=== PATIENT | male | born 1960 | race Caucasian/White ===

== ENCOUNTER 2018-02-05 16:46 | Emergency (ER) | payer OTHER ==
[~2018-02-05] VITALS: Ht 162.6 cm; Wt 68.0 kg
--- NOTE | 2018-02-05 16:46 | NUR ---
PT BIBA BLS TO BED 8
--- NOTE | 2018-02-05 17:00 | NUR ---
MCKINLEY PT IS A HOMELESS AMBULATED WITH W/C; LEFT ARM 7 left leg contracture. PT C/O USING METH AND "MISSING." PT HAS POSSIBLE CELLULITIS TO R ARM. ARM IS SWOLLEN , WARM TO THE TOUCH, BLISTERING NOTED. HX: METH USE. DENIES N/V/D. AAOX4.PATIENT STATES PAIN OF 7/10 AT THIS TIME. PATIENT POSITIONED FOR COMFORT; R ARM ELEVATED; BEDRAILS UP X2; BED DOWN. ER MD MADE AWARE OF PT STATUS.
[2018-02-05 17:01] VITALS: BP 128/69
[2018-02-05] MEDS ORDERED: VANCOMYCIN 1,000 MG in DEXTROSE 5% 250 ML IV ONE (17:35)
[2018-02-05] MEDS ORDERED: NACL 0.9% 1,000 ML IV ONE ×2 (17:35→18:10)
[2018-02-05] MEDS ORDERED: ONDANSETRON 4 MG/2 ML VIAL IVP ONE (17:35)
[2018-02-05] MEDS ORDERED: PIPERACILLIN/TAZOBACTAM 3.375 GM in DEXTROSE 5% 50 ML IV ONE (17:35)
[2018-02-05] MEDS ORDERED: MORPHINE SULFATE 4 MG/ML SYR IVP ONE (17:35)
[2018-02-05] MEDS ORDERED: VANCOMYCIN 1,000 MG VIAL ONE (18:22)
[2018-02-05] MEDS ORDERED: PIPERACILLIN/TAZOBACTAM 3.375 GM VIAL IV ONE (18:22)
--- NOTE | 2018-02-05 18:23 | NUR ---
US AND LAB AT BEDSIDE.
--- NOTE | 2018-02-05 18:23 | NUR ---
LAB AT BEDSIDE
[2018-02-05] MEDS ORDERED: MORPHINE SULFATE 2 MG/ML SYR ONE (18:24)
[2018-02-05 18:38] LABS: BASOPHILS # (AUTO) 0.1 K/uL (0.00-0.22); BASOPHILS % (AUTO) 0.4 % (0.0-2.0); EOSINOPHILS % (AUTO) 0.1 % (0.0-4.0); HEMATOCRIT 42.3 % (36-52); HEMOGLOBIN 14.3 g/dL (12.0-18.0); LYMPHOCYTES # (AUTO) 0.9 K/uL (2.0-11.5); LYMPHOCYTES % (AUTO) 3.7 % (20.5-51.1); MEAN CORPUSCULAR HEMOGLOBIN 30 pg (27-31); MEAN CORPUSCULAR HGB CONC 34 g/dL (33-37); MEAN CORPUSCULAR VOLUME 88.2 fL (80-94); MONOCYTES # (AUTO) 2.4 K/uL (0.8-1.0); NEUTROPHILS % (AUTO) 85.8 % (42.2-75.2); PLATELET COUNT (AUTO) 265 K/uL (140-450); RED CELL DISTRIBUTION WIDTH 13.6 % (11.6-13.7); WHITE BLOOD COUNT (AUTO) 24.5 K/uL (4.8-10.8)
[2018-02-05 18:48] LABS: ANION GAP 16.3 (8-16); CARBON DIOXIDE 23.1 mmol/L (21-32); CREATININE 1.1 mg/dL (0.7-1.3); POTASSIUM 3.4 mmol/L (3.5-5.1)
[2018-02-05 18:54] LABS: PROTHROMBIN TIME 10.8 secs (10.8-13.4)
--- NOTE | 2018-02-05 18:56 | NUR ---
GAVE REPORT TO LUCIANA; [facility].
[2018-02-05 19:03] LABS: ALBUMIN 2.2 g/dL (3.4-5.0); TOTAL BILIRUBIN 1.5 mg/dL (0.0-1.0)
--- NOTE | 2018-02-05 19:03 | NUR ---
CODE 3 TRANSPORT FOR PT ARRIVED
[2018-02-05 19:05] VITALS: BP 134/62
--- NOTE | 2018-02-05 19:05 | NUR ---
Patient to be transferred to [facility]. Is being transferred due to [facility]OG[facility] LEVEL. Receiving facility has accepting physician and available space. ER physician has signed transfer form. Patient or responsible republican has agreed to transfer and signed form. Patient belongings inventoried and will be sent with patient. Copy of nursing notes, lab reports, EKG, Physicians Orders and X-rays to be sent with patient. Report called to LUCIANA CHACON at receiving facility. [facility] ambulance service has been called for transfer.
[2018-02-05 19:59] LABS: APPEARANCE,URINE CLEAR (CLEAR); BILIRUBIN,URINE SMALL (NEGATIVE); BLOOD, URINE SMALL (NEGATIVE); COLOR,URINE YELLOW (YELLOW); LEUKOCYTE ESTERASE ,URINE NEGATIVE (NEGATIVE); NITRITE, URINE NEGATIVE (NEGATIVE); PH,URINE 6.5 (5.0-9.0); UGLUCOSE NEGATIVE (NEGATIVE)
[2018-02-05 20:05] LABS: RBC,URINE 3-10 (FEW) /HPF (0-5); WBC,URINE 0-5 (RARE) /HPF (0-5)
== END 2018-02-05 19:05 | disposition short-term general hospital (02) ==
LOC: MED 16:46
DX: R94.31 Abnormal electrocardiogram [ECG] [EKG] (principal); I21.3 ST elevation (STEMI) myocardial infarction of unspecified site; L03.113 Cellulitis of right upper limb; B95.62 Methicillin resistant Staphylococcus aureus infection as the cause of diseases classified elsewhere; A41.9 Sepsis, unspecified organism; F17.210 Nicotine dependence, cigarettes, uncomplicated
CPT/HCPCS: 36415; 80053; 81001; 82550; 83605; 84484; 85025; 85379; 85610; 85730; 87040; 87086; 93971; 96365; 96375; 99285; J2270; J2405; J2543; J3370; J7030; J7060; Q0092

== ENCOUNTER 2019-04-02 08:53 | Emergency (ER) | payer OTHER ==
[~2019-04-02] VITALS: Ht 167.6 cm; Wt 68.0 kg
--- NOTE | 2019-04-02 08:59 | NUR ---
PATIENT BIBA TO BED 12 AT THIS TIME.
[2019-04-02 09:02] VITALS: BP 152/95
--- NOTE | 2019-04-02 09:07 | NUR ---
MCKINLEY FROM [facility] C/O L LEG PAIN X A YEAR. MED HX: HEP C, HEAD & R ARM SURGERY. PATIENT STATES PAIN OF 10/10 AT THIS TIME. PATIENT POSITIONED FOR COMFORT; HOB ELEVATED; BEDRAILS UP X2; BED DOWN. ER MD MADE AWARE OF PT STATUS.
[2019-04-02] MEDS ORDERED: KETOROLAC 60 MG/2 ML VIAL IM ONE (09:55)
--- NOTE | 2019-04-02 10:08 | NUR ---
IM GERMAN MEDS GIVEN-NADR AT THIS TIME
--- NOTE | 2019-04-02 10:08 | NUR ---
XRAY AT BEDSIDE
--- NOTE | 2019-04-02 11:32 | NUR ---
PT GIVEN ANOTHER BLANKET AND POSITIONED FOR COMFORT.
[2019-04-02 11:59] VITALS: BP 134/88
--- NOTE | 2019-04-02 12:00 | NUR ---
Patient discharged with v/s stable. Written and verbal after care instructions given and explained. Patient alert, oriented and verbalized understanding of instructions. Wheel Chair Assisted with to home. All questions addressed prior to discharge. ID band removed. Patient advised to follow up with PMD. Rx of NAPROSYN given. Patient educated on indication of medication including possible reaction and side effects. Opportunity to ask questions provided and answered.
--- NOTE | 2019-04-02 12:01 | NUR ---
HOMELESS PT WAIVER FORM DONE LUNCH GIVEN
== END 2019-04-02 12:00 | disposition home or self-care (01) ==
LOC: MED 08:53
DX: G89.29 Other chronic pain (principal); M79.605 Pain in left leg; F17.210 Nicotine dependence, cigarettes, uncomplicated; F15.10 Other stimulant abuse, uncomplicated; Z86.19 Personal history of other infectious and parasitic diseases; Z98.890 Other specified postprocedural states
CPT/HCPCS: 73562; 73590; 73610; 96372; 99283; J1885; Q0092

== ENCOUNTER 2021-12-18 15:08 | Emergency (ER) | payer OTHER ==
[~2021-12-18] VITALS: Ht 167.6 cm; Wt 68.0 kg
[~2021-12-18 15:08] MED LIST: CEFD300C3 PO; DOXY-690 PO; ONDA-188 PO
[2021-12-18 15:15] VITALS: BP 134/95
--- NOTE | 2021-12-18 15:20 | NUR ---
TENT 2.
[2021-12-18] MEDS ORDERED: CEPH-588 PO (17:15)
[2021-12-18] MEDS ORDERED: SULF-59 PO (17:15)
[2021-12-18] MEDS ORDERED: IBUP-1842 PO (17:15)
[2021-12-18 17:50] VITALS: BP 134/95
--- NOTE | 2021-12-18 17:50 | NUR ---
Patient discharged with v/s stable. Written and verbal after care instructions given and explained. Patient alert, oriented and verbalized understanding of instructions. Ambulatory with steady gait. All questions addressed prior to discharge. ID band removed. Patient advised to follow up with PMD. Rx of KFELX, MOTRIN, AND BACTRIM given. Patient educated on indication of medication including possible reaction and side effects. Opportunity to ask questions provided and answered.
== END 2021-12-18 17:50 | disposition home or self-care (01) ==
LOC: MED 15:08
DX: L03.116 Cellulitis of left lower limb (principal); L03.115 Cellulitis of right lower limb; I10 Essential (primary) hypertension; Z79.899 Other long term (current) drug therapy
CPT/HCPCS: 99283

== ENCOUNTER 2021-12-19 04:45 | Emergency (ER) | payer OTHER ==
[~2021-12-19] VITALS: Ht 167.6 cm; Wt 59.0 kg
[2021-12-19 04:45] VITALS: BP 162/110
[~2021-12-19 04:45] MED LIST changes: +CEPH-588 PO; +IBUP-1842 PO; +SULF-59 PO
--- NOTE | 2021-12-19 04:45 | NUR ---
Dr. Britt examining patient.
[2021-12-19] MEDS ORDERED: IBUPROFEN 800 MG TAB PO ONE (04:50)
--- NOTE | 2021-12-19 04:55 | NUR ---
04:47 PER PT JUST WANTS CLEAN CLOTHES AND TO GET CLEANED UP.
[2021-12-19 05:15] VITALS: BP 162/110
--- NOTE | 2021-12-19 05:15 | NUR ---
Patient discharged with v/s stable. Written and verbal after care instructions given and explained. Patient verbalized understanding. Wheel Chair Assisted with by himself. All questions addressed prior to discharge. Advised to follow up with PMD.
== END 2021-12-19 05:15 | disposition home or self-care (01) ==
LOC: MED 04:45
DX: M79.604 Pain in right leg (principal); M79.605 Pain in left leg; I10 Essential (primary) hypertension; Z79.899 Other long term (current) drug therapy; Z59.00 Homelessness unspecified
CPT/HCPCS: 99282

== ENCOUNTER 2022-01-01 16:24 | Inpatient (IN) | payer OTHER ==
[~2022-01-01] VITALS: Ht 172.7 cm; Wt 68.0 kg
[2022-01-01 16:38] VITALS: BP 139/89
[2022-01-01 17:23] LABS: BASOPHILS % (AUTO) 0.4 % (0.0-2.0); EOSINOPHILS # (AUTO) 0.1 K/uL (0-0.4); EOSINOPHILS % (AUTO) 1.2 % (0.0-4.0); HEMATOCRIT 44.1 % (36-52); LYMPHOCYTES # (AUTO) 1.8 K/uL (2.0-11.5); LYMPHOCYTES % (AUTO) 14.1 % (20.5-51.1); MEAN CORPUSCULAR HEMOGLOBIN 31 pg (27-31); MEAN CORPUSCULAR HGB CONC 34 g/dL (33-37); MEAN CORPUSCULAR VOLUME 90.6 fL (80-94); MONOCYTES # (AUTO) 1.1 K/uL (0.8-1.0); MONOCYTES % (AUTO) 8.7 % (1.7-9.3); NEUTROPHILS # (AUTO) 9.7 K/uL (1.8-7.7); NEUTROPHILS % (AUTO) 75.6 % (42.2-75.2); PLATELET COUNT (AUTO) 469 K/uL (140-450); RED BLOOD CELL COUNT(AUTO) 4.86 MIL/uL (4.20-6.10); WHITE BLOOD COUNT (AUTO) 12.8 K/uL (4.8-10.8)
[2022-01-01 17:48] LABS: ALBUMIN 3.5 g/dL (3.4-5.0); ANION GAP 14.1 (8-16); ASPARTATE AMINOTRANSFERASE 19 U/L (15-37); CARBON DIOXIDE 27.7 mmol/L (21-32); CHLORIDE 105 mmol/L (98-107); GFR ARICAN-AMERICAN 98 mL/min (>90); GLUCOSE 115 mg/dL (74-106); POTASSIUM 3.8 mmol/L (3.5-5.1); SODIUM SERUM 143 mmol/L (136-145); TOTAL BILIRUBIN 0.8 mg/dL (0.0-1.0); UREA NITROGEN, BLOOD 26 mg/dL (7-18)
[2022-01-01] MEDS ORDERED: ONDANSETRON 4 MG/2 ML VIAL IVP PRN (21:30)
[2022-01-01] MEDS ORDERED: ACETAMINOPHEN 325 MG TAB PO PRN (21:30)
[2022-01-01] MEDS ORDERED: VANCOMYCIN PER PHARMACY MC PRN (21:30)
[2022-01-01] MEDS ORDERED: MAG SULF 2000 MG/WATER PREMIX 50 ML IV PRN (21:30)
[2022-01-01] MEDS ORDERED: KCL 20 MEQ/WATER INJ PREMIX 200 ML IV PRN (21:30)
[2022-01-01] MEDS ORDERED: POTASSIUM CHLORIDE 10 MEQ TABER PO PRN (21:30)
[2022-01-01] MEDS ORDERED: MAGNESIUM OXIDE 400 MG TAB PO PRN (21:30)
[2022-01-01] MEDS ORDERED: MORPHINE SULFATE 4 MG/ML SYR IVP PRN (21:30)
[2022-01-01 21:59] LABS: BILIRUBIN,URINE 1+ (NEGATIVE); BLOOD, URINE TRACE-I (NEGATIVE); COLOR,URINE YELLOW (YELLOW); LEUKOCYTE ESTERASE ,URINE TRACE (NEGATIVE); NITRITE, URINE NEGATIVE (NEGATIVE); UGLUCOSE NEGATIVE (NEGATIVE)
[2022-01-01] MEDS ORDERED: VANCOMYCIN 1GM/DEXT 5% PREMIX 200 ML IV SCH (22:00)
[2022-01-01 22:03] LABS: APPEARANCE,URINE HAZY (CLEAR)
[2022-01-01 22:12] LABS: RBC,URINE 0-5 /HPF (0-5)
[2022-01-01 22:30] VITALS: BP 133/82
[2022-01-01] MEDS: NACL 0.9% 1,000 ML IV SCH (22:45)
[2022-01-01] MEDS ORDERED: VANCOMYCIN 1,000 MG VIAL ONE (23:30)
[2022-01-02 04:00] VITALS: BP 123/74
[2022-01-02 08:00] VITALS: BP 126/68
[2022-01-02] MEDS: DOCUSATE SODIUM 100 MG GELCAP PO SCH (08:30)
[2022-01-02] MEDS: NACL 0.9% 1,000 ML IV SCH ×2 (10:00→22:30)
[2022-01-02 10:04] LABS: BASOPHILS # (AUTO) 0.1 K/uL (0.00-0.22); BASOPHILS % (AUTO) 1.2 % (0.0-2.0); EOSINOPHILS # (AUTO) 0.3 K/uL (0-0.4); EOSINOPHILS % (AUTO) 3.8 % (0.0-4.0); HEMATOCRIT 39.3 % (36-52); HEMOGLOBIN 13.3 g/dL (12.0-18.0); LYMPHOCYTES # (AUTO) 3.4 K/uL (2.0-11.5); LYMPHOCYTES % (AUTO) 36.3 % (20.5-51.1); MEAN CORPUSCULAR HEMOGLOBIN 31 pg (27-31); MEAN CORPUSCULAR HGB CONC 34 g/dL (33-37); MEAN CORPUSCULAR VOLUME 90.9 fL (80-94); MONOCYTES # (AUTO) 0.8 K/uL (0.8-1.0); MONOCYTES % (AUTO) 8.6 % (1.7-9.3); NEUTROPHILS # (AUTO) 4.7 K/uL (1.8-7.7); NEUTROPHILS % (AUTO) 50.1 % (42.2-75.2); PLATELET COUNT (AUTO) 360 K/uL (140-450); RED BLOOD CELL COUNT(AUTO) 4.33 MIL/uL (4.20-6.10); WHITE BLOOD COUNT (AUTO) 9.3 K/uL (4.8-10.8)
[2022-01-02 10:24] LABS: ALBUMIN 2.7 g/dL (3.4-5.0); ANION GAP 12.3 (8-16); CARBON DIOXIDE 27.3 mmol/L (21-32); CREATININE 0.8 mg/dL (0.6-1.3); MAGNESIUM 1.8 mg/dL (1.8-2.4); POTASSIUM 3.6 mmol/L (3.5-5.1); TOTAL BILIRUBIN 0.7 mg/dL (0.0-1.0)
[2022-01-02] MEDS: VANCOMYCIN 1,000 MG in DEXTROSE 5% 250 ML IV SCH ×2 (11:00→23:00)
[2022-01-02] MEDS ORDERED: FOAM DRESSING TP PRN (11:05)
[2022-01-02] MEDS ORDERED: FOAM DRESSING TP SCH (13:00)
[2022-01-02] MEDS: Z-GUARD PASTE TP SCH (13:17)
[2022-01-02] MEDS: NON ADHERENT DRESSING TP SCH (13:18)
[2022-01-02] MEDS: HYDROcodone/APAP 5/325 MG 1 TAB TAB PO PRN (13:21)
[2022-01-02 16:00] VITALS: BP 135/63
[2022-01-02 20:00] VITALS: BP 115/64
[2022-01-02 20:12] LABS: BARBITURATE, URINE NEGATIVE ng/ml (NEG <=200); BENZODIAZEPINE, URINE NEGATIVE ng/mL (NEG <=200); CANNABINOID, URINE POSITIVE ng/mL (NEG <=50); COCAINE, URINE NEGATIVE ng/mL (NEG <=300); OPIATE, URINE POSITIVE ng/mL (NEG <=2000); PHENCYCLIDINE SCREEN,URINE NEGATIVE ng/mL (NEG <=25)
[2022-01-03 04:00] VITALS: BP 124/62
[2022-01-03] MEDS: HYDROcodone/APAP 5/325 MG 1 TAB TAB PO PRN ×3 (06:00→21:22)
[2022-01-03 07:51] LABS: BASOPHILS % (AUTO) 0.5 % (0.0-2.0); EOSINOPHILS # (AUTO) 0.3 K/uL (0-0.4); EOSINOPHILS % (AUTO) 4.7 % (0.0-4.0); HEMATOCRIT 37.3 % (36-52); HEMOGLOBIN 13.1 g/dL (12.0-18.0); LYMPHOCYTES # (AUTO) 2.2 K/uL (2.0-11.5); LYMPHOCYTES % (AUTO) 36.1 % (20.5-51.1); MEAN CORPUSCULAR HEMOGLOBIN 31 pg (27-31); MEAN CORPUSCULAR HGB CONC 35 g/dL (33-37); MEAN CORPUSCULAR VOLUME 89.1 fL (80-94); MONOCYTES # (AUTO) 0.5 K/uL (0.8-1.0); MONOCYTES % (AUTO) 7.9 % (1.7-9.3); NEUTROPHILS # (AUTO) 3.1 K/uL (1.8-7.7); NEUTROPHILS % (AUTO) 50.8 % (42.2-75.2); PLATELET COUNT (AUTO) 343 K/uL (140-450); RED BLOOD CELL COUNT(AUTO) 4.19 MIL/uL (4.20-6.10); RED CELL DISTRIBUTION WIDTH 13.9 % (11.6-13.7); WHITE BLOOD COUNT (AUTO) 6.1 K/uL (4.8-10.8)
[2022-01-03 08:00] VITALS: BP 135/85
[2022-01-03] MEDS: DOCUSATE SODIUM 100 MG GELCAP PO SCH (08:40)
[2022-01-03 08:51] LABS: ALBUMIN 2.6 g/dL (3.4-5.0); ANION GAP 12.8 (8-16); CARBON DIOXIDE 25.2 mmol/L (21-32); CREATININE 0.8 mg/dL (0.6-1.3); MAGNESIUM 1.7 mg/dL (1.8-2.4); TOTAL BILIRUBIN 0.4 mg/dL (0.0-1.0)
[2022-01-03] MEDS: VANCOMYCIN 1,000 MG in DEXTROSE 5% 250 ML IV SCH ×2 (11:00→22:37)
[2022-01-03] MEDS: NACL 0.9% 1,000 ML IV SCH ×2 (11:12→21:05)
[2022-01-03] MEDS: Z-GUARD PASTE TP SCH (13:00)
[2022-01-03 16:00] VITALS: BP 128/80
[2022-01-03 20:00] VITALS: BP 148/82
[2022-01-04] VITALS: BP 125/68
[2022-01-04 04:43] VITALS: BP 125/55
[2022-01-04] MEDS: DOCUSATE SODIUM 100 MG GELCAP PO SCH (09:00)
[2022-01-04] MEDS: HYDROcodone/APAP 5/325 MG 1 TAB TAB PO PRN (09:26)
[2022-01-04] MEDS: NON ADHERENT DRESSING TP SCH (09:28)
[2022-01-04] MEDS: VANCOMYCIN 1,000 MG in DEXTROSE 5% 250 ML IV SCH (11:51)
[2022-01-04] MEDS: NACL 0.9% 1,000 ML IV SCH (11:52)
[2022-01-04] MEDS: Z-GUARD PASTE TP SCH (13:35)
[2022-01-04 14:44] VITALS: BP 157/109
== END 2022-01-04 16:42 | DRG 383 ==
LOC: MED 16:24 → MTU 21:29
PROVIDERS: ADMIT Hospitalist; ATTEND Hospitalist
DX: L03.116 Cellulitis of left lower limb (principal); E44.0 Moderate protein-calorie malnutrition; R65.10 Systemic inflammatory response syndrome (SIRS) of non-infectious origin without acute organ dysfunction; I11.0 Hypertensive heart disease with heart failure; I50.9 Heart failure, unspecified; I73.9 Peripheral vascular disease, unspecified; F19.10 Other psychoactive substance abuse, uncomplicated; Z20.822 Contact with and (suspected) exposure to COVID-19; E86.0 Dehydration; D72.829 Elevated white blood cell count, unspecified; Z68.22 Body mass index [BMI] 22.0-22.9, adult; Z59.00 Homelessness unspecified
CPT/HCPCS: 36415; 71045; 73590; 80053; 80202; 80305; 81001; 82550; 83605; 83735; 84484; 85025; 87040; 87081; 87086; 93005; 93926; 93971; 99285; J1644; J2270; J3370; J7060; Q0092

== ENCOUNTER 2022-02-11 02:18 | Emergency (ER) | payer OTHER ==
[~2022-02-11] VITALS: Ht 177.8 cm; Wt 81.6 kg
[~2022-02-11 02:18] MED LIST changes: -CEFD300C3 PO; -CEPH-588 PO; -DOXY-690 PO; -IBUP-1842 PO; -SULF-59 PO
--- NOTE | 2022-02-11 02:20 | NUR ---
pt fabian holly
[2022-02-11 02:26] VITALS: BP 129/87
[2022-02-11] MEDS ORDERED: KETOROLAC 30 MG/ML VIAL IM ONE (03:45)
--- NOTE | 2022-02-11 04:00 | NUR ---
medicated as ordered.
[2022-02-11 04:08] VITALS: BP 128/80
--- NOTE | 2022-02-11 04:08 | NUR ---
Written and verbal after care instructions given and explained. Patient verbalized understanding. Wheel Chair Assisted. All questions addressed prior to discharge. Advised to follow up with PMD.
[2022-02-11] MEDS ORDERED: CEPH-588 PO (08:24)
== END 2022-02-11 04:08 | disposition home or self-care (01) ==
LOC: MED 02:18
DX: L03.119 Cellulitis of unspecified part of limb (principal); I73.9 Peripheral vascular disease, unspecified; Z91.14 Patient's other noncompliance with medication regimen; I10 Essential (primary) hypertension; Z79.899 Other long term (current) drug therapy
CPT/HCPCS: 96372; 99283; J1885

== ENCOUNTER 2022-02-11 07:47 | Emergency (ER) | payer OTHER ==
[~2022-02-11] VITALS: Ht 177.8 cm; Wt 81.6 kg
[2022-02-11 07:48] VITALS: BP 150/56
--- NOTE | 2022-02-11 07:56 | NUR ---
61 y/o male petra leon pd, pt was previously discharged from ER this morning and refusing to leave because his wheelchair was not brought in with ambulance. pt states he is unable to walk or move for himself. a&ox4, lungs clear bl, heart rate even and tachy 130. denies sob, cp, fever, sore throat.
[2022-02-11] MEDS ORDERED: CEPH-588 PO (08:24)
[2022-02-11 08:47] VITALS: BP 127/80
--- NOTE | 2022-02-11 08:49 | NUR ---
PATIENT BIB [employer]. PATIENT EXAMINED BY . PATIENT MEDICALLY CLEARED AND RELEASED IN CUSTODY IN STABLE CONDITION. ORIGINAL PRE-BOOK FORM GIVEN TO OFFICER.
--- NOTE | 2022-02-11 10:23 | NUR ---
ONE [facility] TISSUE DONATION REF [id number]
== END 2022-02-11 08:47 ==
LOC: MED 07:47
DX: Z02.89 Encounter for other administrative examinations (principal)
CPT/HCPCS: 99283